=== PATIENT | female | born 1975 | race Caucasian/White ===

== ENCOUNTER 2016-04-01 10:00 | Outpatient (RCR) | payer BC ==
[2014-12-16 15:00] VITALS: BP 128/67
[~2016-04-01 10:00] MED LIST: COPAXONE40 MG/ML SC; MOTRIN 200200 MG/TAB PO; PRENATAL1 TA3 PO; SENSE PAI PO; VITAMIN D2000 I1 PO
== END 2016-04-22 | disposition home or self-care (01) ==
LOC: PT
DX: G35 Multiple sclerosis (principal)

== ENCOUNTER 2016-07-25 13:50 | Outpatient (RCR) | payer MEDICAID ==
[2016-07-25 13:51] VITALS: BP 142/81
[2016-07-25] MEDS ORDERED: GOOD NEIGHBOR P1 T32 PO (14:25)
[2016-07-25] MEDS ORDERED: ESSENTIAL DAIL1 EACH PO (14:25)
[2016-07-25 16:45] VITALS: BP 113/72
[2016-07-26 14:50] VITALS: BP 122/71
[2016-07-26 16:48] VITALS: BP 109/64
[2016-07-27 14:10] VITALS: BP 113/70
[2016-07-27 16:23] VITALS: BP 112/65
[2016-07-28 14:40] VITALS: BP 139/76
[2016-07-28 14:55] VITALS: BP 139/76
[2016-07-28 17:04] VITALS: BP 137/66
[2016-07-29 15:21] VITALS: BP 121/72
[2016-07-29 17:22] VITALS: BP 134/76
== END 2016-07-29 17:00 | disposition home or self-care (01) ==
LOC: AMSURD 13:50 → EDSTATUS 14:29 → AMSURD 07-29 17:00
DX: G35 Multiple sclerosis (principal)
CPT/HCPCS: J2930; J7050

== ENCOUNTER 2017-03-21 13:42 | Outpatient (RCR) | payer MEDICAID ==
[~2017-03-21] VITALS: Ht 160 cm; Wt 90.9 kg
[~2017-03-21 13:42] MED LIST changes: +ESSENTIAL DAIL1 EACH PO; +GOOD NEIGHBOR P1 T32 PO
--- NOTE | 2017-03-21 14:00 | NUR ---
IV left in for length of treatment.
[2017-03-21] MEDS ORDERED: VITAMIN D5000 I1 PO (14:11)
[2017-03-21] MEDS ORDERED: VITAMIN D310000 UNI1 PO (14:13)
[2017-03-21] MEDS ORDERED: AUBAGIO14 MG PO (14:14)
[2017-03-21] MEDS ORDERED: AMPYRA10 MG PO (14:15)
[2017-03-21] MEDS ORDERED: BACLOFEN10 M1 PO (14:16)
[2017-03-21 14:18] VITALS: BP 129/76
[2017-03-21 14:25] VITALS: BP 129/76
[2017-03-21 17:16] VITALS: BP 100/56
[2017-03-22 13:45] VITALS: BP 135/79
[2017-03-22 16:15] VITALS: BP 120/74
[2017-03-23 14:08] VITALS: BP 126/75
[2017-03-23 16:25] VITALS: BP 119/72
[2017-03-24 15:44] VITALS: BP 144/81
--- NOTE | 2017-03-24 16:40 | NUR ---
infusion runs patently, patient curretnly rest quietly without request or complaint
[2017-03-24 17:50] VITALS: BP 136/81
[2017-03-25 14:09] VITALS: BP 146/89
[2017-03-25 16:19] VITALS: BP 137/81
== END 2017-03-25 17:00 | disposition home or self-care (01) ==
LOC: AMSURD 13:42
DX: G35 Multiple sclerosis (principal)
CPT/HCPCS: J2930; J7050

== ENCOUNTER 2018-02-02 11:47 | Outpatient (RCR) | payer MEDICAID ==
[2018-01-29 11:02] VITALS: BP 131/84
[2018-01-29 14:28] VITALS: BP 139/83
[2018-01-30 12:45] VITALS: BP 130/79
[2018-01-30 15:08] VITALS: BP 126/75
[2018-01-31 13:35] VITALS: BP 126/77
[2018-01-31 15:36] VITALS: BP 126/74
[2018-02-01 12:58] VITALS: BP 139/75
[2018-02-01 15:45] VITALS: BP 124/77
[~2018-02-02] VITALS: Ht 160 cm; Wt 90.9 kg
[~2018-02-02 11:47] MED LIST changes: +AMPYRA10 MG PO; +AUBAGIO14 MG PO; +BACLOFEN10 M1 PO; +VITAMIN D310000 UNI1 PO; +VITAMIN D5000 I1 PO
[2018-02-02 12:05] VITALS: BP 129/88
[2018-02-02 14:10] VITALS: BP 132/83
== END 2018-02-02 15:00 | disposition home or self-care (01) ==
LOC: AMSURD 11:47
DX: G35 Multiple sclerosis (principal)
CPT/HCPCS: J2930; J7050

== ENCOUNTER → 2018-03-31 | Outpatient (CLI) | payer MEDICAID | LOC: LAB 10:24 | DX: N39.0 Urinary tract infection, site not specified (principal); B99.9 Unspecified infectious disease ==

== ENCOUNTER → 2018-09-09 | Outpatient (CLI) | payer MEDICAID ==
[2018-09-09 10:23] LABS: BASO # 0.1 (0.02-0.10); EOS # 0.4 (0.04-0.40); EOS % 5.4 % (1.0-5.0); HEMATOCRIT 45.7 % (37.0-47.0); HEMOGLOBIN 14.6 g/dL (12.5-16.0); LYMPH# 1.9 (1.50-4.00); MEAN CELL VOLUME 88 fl (78-100); MEAN CORPUSCULAR HEMOGLOBIN 28 pg (27-31); MEAN CORPUSCULAR HGB CONC 32 g/dL (33-37); MEAN PLATELET VOLUME 8.4 fl (7.4-10.4); MONO # 0.7 (0.20-0.80); NEU # 3.5 (1.40-6.50); PLATELET COUNT 335 K/mm3 (130-400); RED BLOOD COUNT 5.21 M/mm3 (4.10-5.30); RED CELL DISTRIBUTION WIDTH 13.6 % (11.5-14.5); WHITE BLOOD COUNT 6.5 K/mm3 (4.8-10.8)
[2018-09-09 10:58] LABS: ALBUMIN 4.5 g/dL (3.5-5.0); CALCIUM 10.1 mg/dL (8.4-10.2); POTASSIUM 4.2 mmol/L (3.5-5.1); TOTAL BILIRUBIN 0.5 mg/dL (0.2-1.2); TOTAL PROTEIN 7.5 g/dL (6.4-8.3)
[2018-09-12 01:14] LABS: T3 TOTAL 132 ng/dL (87-178)
== END ==
LOC: LAB 09:52
PROVIDERS: Family Medicine
DX: G35 Multiple sclerosis (principal); D63.8 Anemia in other chronic diseases classified elsewhere; E53.9 Vitamin B deficiency, unspecified; E83.42 Hypomagnesemia; R53.83 Other fatigue; R73.9 Hyperglycemia, unspecified

== ENCOUNTER → 2018-09-22 | Outpatient (CLI) | payer MEDICAID ==
[2018-09-22 10:38] LABS: BASO # 0.1 (0.02-0.10); EOS # 0.5 (0.04-0.40); EOS % 6.9 % (1.0-5.0); HEMATOCRIT 45.9 % (37.0-47.0); HEMOGLOBIN 14.5 g/dL (12.5-16.0); MEAN CELL VOLUME 87 fl (78-100); MEAN CORPUSCULAR HEMOGLOBIN 28 pg (27-31); MEAN CORPUSCULAR HGB CONC 32 g/dL (33-37); MEAN PLATELET VOLUME 8.5 fl (7.4-10.4); MONO # 0.7 (0.20-0.80); NEU # 3.7 (1.40-6.50); PLATELET COUNT 345 K/mm3 (130-400); RED BLOOD COUNT 5.25 M/mm3 (4.10-5.30); RED CELL DISTRIBUTION WIDTH 13.8 % (11.5-14.5)
[2018-09-22 11:02] LABS: ALBUMIN 4.1 g/dL (3.5-5.0); CALCIUM 9.8 mg/dL (8.3-10.5); TOTAL BILIRUBIN 0.4 mg/dL (0.2-1.2)
[2018-09-23 00:32] LABS: HEPATITIS B SURFACE ANTIBODY <2.0 (()); HEPATITIS B SURFACE ANTIGEN Negative (Negative)
[2018-09-24 12:17] LABS: QUANTIFERON TB GOLD Negative (Negative)
== END ==
LOC: LAB 10:19
PROVIDERS: Psychiatry & Neurology Neurology
DX: Z51.81 Encounter for therapeutic drug level monitoring (principal); G35 Multiple sclerosis

== ENCOUNTER → 2018-10-15 | Outpatient (CLI) | payer MEDICAID ==
[2018-10-15 13:27] LABS: ALBUMIN 3.8 g/dL (3.5-5.0); EOS # 0.6 (0.04-0.40); EOS % 7.1 % (1.0-5.0); HEMATOCRIT 43.6 % (37.0-47.0); HEMOGLOBIN 13.8 g/dL (12.5-16.0); LYMPH# 2.1 (1.50-4.00); MEAN CELL VOLUME 88 fl (78-100); MEAN CORPUSCULAR HEMOGLOBIN 28 pg (27-31); MEAN CORPUSCULAR HGB CONC 32 g/dL (33-37); MEAN PLATELET VOLUME 8.3 fl (7.4-10.4); NEU # 4.5 (1.40-6.50); PLATELET COUNT 305 K/mm3 (130-400); RED BLOOD COUNT 4.93 M/mm3 (4.10-5.30); RED CELL DISTRIBUTION WIDTH 13.6 % (11.5-14.5); WHITE BLOOD COUNT 8.3 K/mm3 (4.8-10.8)
[2018-10-15 13:29] LABS: CALCIUM 9.1 mg/dL (8.3-10.5)
[2018-10-15 13:30] LABS: TOTAL PROTEIN 6.8 g/dL (6.4-8.3)
[2018-10-15 13:32] LABS: TOTAL BILIRUBIN 0.4 mg/dL (0.2-1.2)
== END ==
LOC: LAB 13:07
PROVIDERS: Psychiatry & Neurology Neurology
DX: G35 Multiple sclerosis (principal)

== ENCOUNTER → 2019-06-18 | Outpatient (CLI) | payer MEDICAID ==
[2019-06-18 12:25] LABS: BASO # 0.1 (0.02-0.10); EOS # 0.5 (0.04-0.40); EOS % 5.6 % (1.0-5.0); HEMATOCRIT 45.3 % (37.0-47.0); HEMOGLOBIN 14.7 g/dL (12.5-16.0); MEAN CELL VOLUME 91 fl (78-100); MEAN CORPUSCULAR HEMOGLOBIN 30 pg (27-31); MEAN CORPUSCULAR HGB CONC 33 g/dL (33-37); MEAN PLATELET VOLUME 8.9 fl (7.4-10.4); NEU # 5.3 (1.40-6.50); PLATELET COUNT 321 K/mm3 (130-400); RED BLOOD COUNT 4.99 M/mm3 (4.10-5.30); WHITE BLOOD COUNT 8.8 K/mm3 (4.8-10.8)
[2019-06-18 23:08] LABS: IGM,SERUM 125 mg/dL (33-293); IMMUNOGLOBULIN A 148 mg/dL (65-421); IMMUNOGLOBULIN G 769 mg/dL (552-1631)
[2019-06-21 11:22] LABS: ALBUMIN 4.1 g/dL (3.5-5.0); POTASSIUM 4.5 mmol/L (3.5-5.1)
[2019-06-21 11:23] LABS: CALCIUM 9.7 mg/dL (8.3-10.5)
[2019-06-21 11:24] LABS: TOTAL PROTEIN 6.3 g/dL (6.4-8.3)
[2019-06-21 11:26] LABS: TOTAL BILIRUBIN 0.4 mg/dL (0.2-1.2)
== END ==
LOC: LAB 11:13
PROVIDERS: Psychiatry & Neurology Neurology
DX: G35 Multiple sclerosis (principal)

== ENCOUNTER → 2020-01-10 | Outpatient (CLI) | payer MEDICAID ==
[2020-01-10 10:30] LABS: BASO # 0.1 (0.02-0.10); EOS # 0.5 (0.04-0.40); EOS % 4.9 % (1.0-5.0); HEMATOCRIT 46.3 % (37.0-47.0); LYMPH# 2.3 (1.50-4.00); MEAN CELL VOLUME 90 fl (78-100); MEAN CORPUSCULAR HEMOGLOBIN 29 pg (27-31); MEAN CORPUSCULAR HGB CONC 32 g/dL (33-37); MEAN PLATELET VOLUME 8.6 fl (7.4-10.4); MONO # 0.8 (0.20-0.80); NEU # 5.9 (1.40-6.50); PLATELET COUNT 383 K/mm3 (130-400); RED BLOOD COUNT 5.15 M/mm3 (4.10-5.30); WHITE BLOOD COUNT 9.6 K/mm3 (4.8-10.8)
[2020-01-10 10:40] LABS: ALBUMIN 4.3 g/dL (3.5-5.0); POTASSIUM 4.2 mmol/L (3.5-5.1)
[2020-01-10 10:42] LABS: CALCIUM 9.3 mg/dL (8.3-10.5)
[2020-01-10 10:43] LABS: TOTAL PROTEIN 7.2 g/dL (6.4-8.3)
[2020-01-10 10:45] LABS: TOTAL BILIRUBIN 0.3 mg/dL (0.2-1.2)
[2020-01-10 22:37] LABS: IGM,SERUM 119 mg/dL (33-293); IMMUNOGLOBULIN A 151 mg/dL (65-421); IMMUNOGLOBULIN G 838 mg/dL (552-1631)
[2020-01-14 11:25] LABS: A/G RATIO (PEP) 1.06 (())
== END ==
LOC: LAB 10:01
PROVIDERS: Psychiatry & Neurology Neurology
DX: G35 Multiple sclerosis (principal); E55.9 Vitamin D deficiency, unspecified

== ENCOUNTER → 2020-04-06 | Outpatient (CLI) | payer MEDICAID | LOC: LAB 16:32 | DX: L02.411 Cutaneous abscess of right axilla (principal) ==

== ENCOUNTER → 2020-06-16 | Outpatient (CLI) | payer MEDICAID ==
[2020-06-16 09:53] LABS: EOS # 0.1 (0.04-0.40); EOS % 1.8 % (1.0-5.0); HEMATOCRIT 46.6 % (37.0-47.0); HEMOGLOBIN 14.9 g/dL (12.5-16.0); LYMPH# 1.6 (1.50-4.00); MEAN CELL VOLUME 91 fl (78-100); MEAN CORPUSCULAR HEMOGLOBIN 29 pg (27-31); MEAN CORPUSCULAR HGB CONC 32 g/dL (33-37); MEAN PLATELET VOLUME 8.4 fl (7.4-10.4); NEU # 5.2 (1.40-6.50); PLATELET COUNT 357 K/mm3 (130-400); RED BLOOD COUNT 5.12 M/mm3 (4.10-5.30); RED CELL DISTRIBUTION WIDTH 12.8 % (11.5-14.5); WHITE BLOOD COUNT 7.9 K/mm3 (4.8-10.8)
[2020-06-16 10:10] LABS: ALBUMIN 4.1 g/dL (3.5-5.0)
[2020-06-16 10:13] LABS: TOTAL PROTEIN 7.1 g/dL (6.4-8.3)
[2020-06-16 10:15] LABS: TOTAL BILIRUBIN 1.2 mg/dL (0.2-1.2)
[2020-06-16 10:18] LABS: DIRECT BILIRUBIN 0.8 mg/dL (0.0-0.5)
== END ==
LOC: LAB 09:28
PROVIDERS: Physician Assistant
DX: R10.11 Right upper quadrant pain (principal)

== ENCOUNTER → 2020-06-19 | Outpatient (CLI) | payer MEDICAID | LOC: RAD 08:30 | DX: K80.20 Calculus of gallbladder without cholecystitis without obstruction (principal); K76.0 Fatty (change of) liver, not elsewhere classified ==

== ENCOUNTER → 2020-07-07 | Outpatient (CLI) | payer MEDICAID ==
[2020-07-07 11:44] LABS: EOS # 0.3 (0.04-0.40); EOS % 3.1 % (1.0-5.0); HEMATOCRIT 44.5 % (37.0-47.0); HEMOGLOBIN 14.3 g/dL (12.5-16.0); LYMPH# 1.8 (1.50-4.00); MEAN CELL VOLUME 92 fl (78-100); MEAN CORPUSCULAR HEMOGLOBIN 29 pg (27-31); MEAN CORPUSCULAR HGB CONC 32 g/dL (33-37); MEAN PLATELET VOLUME 8.4 fl (7.4-10.4); MONO # 0.7 (0.20-0.80); NEU # 5.4 (1.40-6.50); PLATELET COUNT 368 K/mm3 (130-400); RED BLOOD COUNT 4.86 M/mm3 (4.10-5.30); RED CELL DISTRIBUTION WIDTH 12.9 % (11.5-14.5); WHITE BLOOD COUNT 8.2 K/mm3 (4.8-10.8)
[2020-07-07 12:03] LABS: POTASSIUM 4.3 mmol/L (3.5-5.1)
[2020-07-07 12:04] LABS: CALCIUM 9.3 mg/dL (8.3-10.5)
[2020-07-07 12:05] LABS: TOTAL PROTEIN 6.7 g/dL (6.4-8.3)
[2020-07-07 12:07] LABS: TOTAL BILIRUBIN 0.3 mg/dL (0.2-1.2)
[2020-07-12 09:16] LABS: A/G RATIO (PEP) 1.08 (())
== END ==
LOC: LAB 11:13
PROVIDERS: Psychiatry & Neurology Neurology
DX: G35 Multiple sclerosis (principal); G43.009 Migraine without aura, not intractable, without status migrainosus

== ENCOUNTER → 2020-07-13 | Outpatient (CLI) | payer MEDICAID | LOC: LAB 10:22 | DX: N39.0 Urinary tract infection, site not specified (principal) ==

== ENCOUNTER → 2020-07-20 | Outpatient (CLI) | payer MEDICAID ==
[2020-07-20 22:56] LABS: IGM,SERUM 93 mg/dL (33-293); IMMUNOGLOBULIN A 151 mg/dL (65-421); IMMUNOGLOBULIN G 828 mg/dL (552-1631)
== END ==
LOC: LAB 09:26
PROVIDERS: Psychiatry & Neurology Neurology
DX: G35 Multiple sclerosis (principal)

== ENCOUNTER → 2021-01-03 | Outpatient (CLI) | payer MEDICAID ==
[2021-01-03 10:38] LABS: BASO # 0.06 (0.02-0.10); EOS # 0.58 (0.04-0.40); EOS % 5.6 % (1.0-5.0); HEMATOCRIT 47.8 % (37.0-47.0); HEMOGLOBIN 15.4 g/dL (12.5-16.0); LYMPH# 2.44 (1.50-4.00); MEAN CELL VOLUME 93 fl (78-100); MEAN CORPUSCULAR HEMOGLOBIN 30 pg (27-31); MEAN CORPUSCULAR HGB CONC 32 g/dL (33-37); MEAN PLATELET VOLUME 8.4 fl (7.4-10.4); MONO # 0.91 (0.20-0.80); PLATELET COUNT 365 K/mm3 (130-400); RED BLOOD COUNT 5.15 M/mm3 (4.10-5.30); RED CELL DISTRIBUTION WIDTH 12.3 % (11.5-14.5); WHITE BLOOD COUNT 10.3 K/mm3 (4.8-10.8)
[2021-01-03 11:04] LABS: ALBUMIN 4.2 g/dL (3.5-5.0)
[2021-01-03 11:05] LABS: POTASSIUM 4.1 mmol/L (3.5-5.1)
[2021-01-03 11:07] LABS: TOTAL PROTEIN 7.2 g/dL (6.4-8.3)
[2021-01-03 11:09] LABS: TOTAL BILIRUBIN 0.4 mg/dL (0.2-1.2)
[2021-01-05 11:03] LABS: IGG SUBCLASS 1 428.4 mg/dL (()); IGG SUBCLASS 2 235.5 mg/dL (()); IGG SUBCLASS 4 13.8 mg/dL (3.9-86.4); IGG TOTAL 769 mg/dL (610-1616)
[2021-01-08 14:00] LABS: ALPHA 1 GLOBULINS (IEP) 0.2 g/dL (0.1-0.3); GAMMA GLOBULINS (IEP) 0.8 g/dL (0.6-1.6); TOTAL PROTEIN (IEP) 6.6 g/dL (())
== END ==
LOC: LAB 10:05
PROVIDERS: Psychiatry & Neurology Neurology
DX: G35 Multiple sclerosis (principal); E55.9 Vitamin D deficiency, unspecified; G43.009 Migraine without aura, not intractable, without status migrainosus; R25.2 Cramp and spasm

== ENCOUNTER → 2021-04-16 | Outpatient (CLI) | payer MEDICAID | LOC: RAD 17:34 | DX: R05.9 Cough, unspecified (principal); R06.09 Other forms of dyspnea ==

== ENCOUNTER → 2021-04-17 | Outpatient (CLI) | payer MEDICAID ==
[2021-04-17 14:02] LABS: EOS # 0.01 K/mm3 (0.04-0.40); EOS % 0.2 % (1.0-5.0); HEMOGLOBIN 14.3 g/dL (12.5-16.0); LYMPH# 1.14 K/mm3 (1.50-4.00); MEAN CELL VOLUME 91 fl (78-100); MEAN CORPUSCULAR HEMOGLOBIN 30 pg (27-31); MEAN CORPUSCULAR HGB CONC 33 g/dL (33-37); MEAN PLATELET VOLUME 8.4 fl (7.4-10.4); PLATELET COUNT 193 K/mm3 (130-400); RED BLOOD COUNT 4.84 M/mm3 (4.10-5.30); RED CELL DISTRIBUTION WIDTH 12.3 % (11.5-14.5); WHITE BLOOD COUNT 5.3 K/mm3 (4.8-10.8)
[2021-04-17 14:11] LABS: ALBUMIN 3.7 g/dL (3.5-5.0)
[2021-04-17 14:12] LABS: CALCIUM 9.2 mg/dL (8.3-10.5)
[2021-04-17 14:13] LABS: TOTAL PROTEIN 6.6 g/dL (6.4-8.3)
[2021-04-17 14:15] LABS: TOTAL BILIRUBIN 0.4 mg/dL (0.2-1.2)
== END ==
LOC: LAB 13:47
PROVIDERS: Nurse Practitioner Family
DX: U07.1 COVID-19 (principal); J18.9 Pneumonia, unspecified organism

== ENCOUNTER → 2021-05-15 | Outpatient (CLI) | payer MEDICAID | LOC: RAD 09:07 | DX: J84.89 Other specified interstitial pulmonary diseases (principal) ==

== ENCOUNTER → 2021-05-16 | Outpatient (CLI) | payer MEDICAID | LOC: VAS 12:25 → AMSURD 12:25 | DX: R07.9 Chest pain, unspecified (principal) ==

== ENCOUNTER 2021-05-24 13:17 | Emergency (ER) | payer MEDICAID ==
[2021-05-24] MEDS ORDERED: PREDNISONE20 M1 PO (13:29)
[2021-05-24] MEDS ORDERED: BUDESONIDE1 MG/2 ML IH (13:29)
[2021-05-24] MEDS ORDERED: CIPRO 500MG TA500 MG PO (13:29)
[2021-05-24] MEDS ORDERED: ALBUTEROL2.5 MG/3 M IH (13:30)
[2021-05-24 13:57] LABS: BASO # 0.07 K/mm3 (0.02-0.10); EOS # 0.39 K/mm3 (0.04-0.40); EOS % 3.3 % (1.0-5.0); HEMATOCRIT 47.2 % (37.0-47.0); HEMOGLOBIN 15.4 g/dL (12.5-16.0); LYMPH# 3.11 K/mm3 (1.50-4.00); MEAN CELL VOLUME 90 fl (78-100); MEAN CORPUSCULAR HEMOGLOBIN 30 pg (27-31); MEAN CORPUSCULAR HGB CONC 33 g/dL (33-37); MEAN PLATELET VOLUME 8.6 fl (7.4-10.4); MONO # 1.48 K/mm3 (0.20-0.80); NEU # 6.54 K/mm3 (1.40-6.50); PLATELET COUNT 371 K/mm3 (130-400); RED BLOOD COUNT 5.22 M/mm3 (4.10-5.30); RED CELL DISTRIBUTION WIDTH 12.7 % (11.5-14.5); WHITE BLOOD COUNT 11.7 K/mm3 (4.8-10.8)
[2021-05-24 14:09] LABS: ALBUMIN 4.2 g/dL (3.5-5.0)
[2021-05-24 14:10] LABS: POTASSIUM 3.7 mmol/L (3.5-5.1); SODIUM 141 mmol/L (136-145)
[2021-05-24 14:11] LABS: CALCIUM 9.6 mg/dL (8.3-10.5)
[2021-05-24 14:12] LABS: GLUCOSE 160 mg/dL (65-105); TOTAL PROTEIN 7.2 g/dL (6.4-8.3)
[2021-05-24 14:13] LABS: CARBON DIOXIDE 23 mmol/L (22-29)
[2021-05-24 14:14] LABS: TOTAL BILIRUBIN 0.3 mg/dL (0.2-1.2)
[2021-05-24 14:17] LABS: AST-SGOT 16 U/L (5-34)
[2021-05-24 14:18] LABS: ALT/SGPT 25 U/L (0-55)
[2021-05-24 14:28] LABS: TROPONIN-I < 0.030 ng/mL (<0.030)
[2021-05-24] MEDS ORDERED: ELIQUIS5 MG PO (14:50)
[2021-05-24 15:06] VITALS: BP 119/97
== END 2021-05-24 15:02 | disposition home or self-care (01) ==
LOC: ED 13:17
PROVIDERS: Family Medicine
DX: I26.99 Other pulmonary embolism without acute cor pulmonale (principal); G35 Multiple sclerosis
CPT/HCPCS: J2930; Q9967

== ENCOUNTER → 2021-06-05 | Outpatient (CLI) | payer MEDICAID ==
[~2021-06-05] MED LIST changes: +ALBUTEROL2.5 MG/3 M IH; +BUDESONIDE1 MG/2 ML IH; +CIPRO 500MG TA500 MG PO; +ELIQUIS5 MG PO; +PREDNISONE20 M1 PO
[2021-06-05 13:43] LABS: ALBUMIN 4.2 g/dL (3.5-5.0); POTASSIUM 3.9 mmol/L (3.5-5.1)
[2021-06-05 13:44] LABS: CALCIUM 9.6 mg/dL (8.3-10.5)
[2021-06-05 13:45] LABS: TOTAL PROTEIN 7.3 g/dL (6.4-8.3)
[2021-06-05 13:47] LABS: TOTAL BILIRUBIN 0.5 mg/dL (0.2-1.2)
== END ==
LOC: LAB 13:03
PROVIDERS: Family Medicine
DX: E55.9 Vitamin D deficiency, unspecified (principal); E53.9 Vitamin B deficiency, unspecified; E66.3 Overweight; G35 Multiple sclerosis; Z86.711 Personal history of pulmonary embolism; R10.9 Unspecified abdominal pain; Z86.16 Personal history of COVID-19

== ENCOUNTER → 2021-07-17 | Outpatient (CLI) | payer MEDICAID ==
[2021-07-17 13:41] LABS: BASO # 0.07 K/mm3 (0.02-0.10); EOS # 0.67 K/mm3 (0.04-0.40); EOS % 9.1 % (1.0-5.0); HEMATOCRIT 45.6 % (37.0-47.0); HEMOGLOBIN 14.8 g/dL (12.5-16.0); LYMPH# 2.62 K/mm3 (1.50-4.00); MEAN CELL VOLUME 90 fl (78-100); MEAN CORPUSCULAR HEMOGLOBIN 29 pg (27-31); MEAN CORPUSCULAR HGB CONC 33 g/dL (33-37); MEAN PLATELET VOLUME 8.3 fl (7.4-10.4); MONO # 0.86 K/mm3 (0.20-0.80); NEU # 3.14 K/mm3 (1.40-6.50); PLATELET COUNT 320 K/mm3 (130-400); RED BLOOD COUNT 5.05 M/mm3 (4.10-5.30); RED CELL DISTRIBUTION WIDTH 13.1 % (11.5-14.5); WHITE BLOOD COUNT 7.4 K/mm3 (4.8-10.8)
[2021-07-17 13:44] LABS: ALBUMIN 4.2 g/dL (3.5-5.0)
[2021-07-17 13:46] LABS: CALCIUM 9.7 mg/dL (8.3-10.5)
[2021-07-17 13:47] LABS: TOTAL PROTEIN 7.2 g/dL (6.4-8.3)
[2021-07-17 13:49] LABS: TOTAL BILIRUBIN 0.4 mg/dL (0.2-1.2)
[2021-07-17 14:01] LABS: D-DIMER 0.46 mg/L FEU (0.15-0.50)
[2021-07-17 23:10] LABS: HOMOCYSTEINE SERUM OR PLASMA 3.8 umol/L (4.0-14.0)
[2021-07-18 06:54] LABS: FACTOR V LEIDEN MUTATION B Negative (Negative)
[2021-07-20 12:38] LABS: PROTEIN S ACTIVITY 114 % (64-149)
== END ==
LOC: LAB 12:44
PROVIDERS: Family Medicine
DX: E03.9 Hypothyroidism, unspecified (principal); I26.99 Other pulmonary embolism without acute cor pulmonale; E55.9 Vitamin D deficiency, unspecified; E53.9 Vitamin B deficiency, unspecified; G35 Multiple sclerosis; M54.50 Low back pain, unspecified; E66.3 Overweight; K64.9 Unspecified hemorrhoids; R53.1 Weakness; Z86.16 Personal history of COVID-19; Z86.711 Personal history of pulmonary embolism

== ENCOUNTER 2021-07-19 09:34 | Emergency (ER) | payer MEDICAID ==
[2021-07-19 09:42] VITALS: BP 150/82
[2021-07-19 11:59] LABS: URINE APPEARANCE CLEAR; URINE BILIRUBIN NEGATIVE (NEGATIVE); URINE BLOOD 250 ery/uL (NEGATIVE); URINE COLOR YELLOW; URINE GLUCOSE NEGATIVE (NEGATIVE); URINE KETONE NEGATIVE (NEGATIVE); URINE LEUKOCYTE ESTERASE TRACE (NEGATIVE); URINE MUCUS PRESENT (NOT PRESENT); URINE NITRATE NEGATIVE (NEGATIVE); URINE PROTEIN(semi-quant) TRACE (NEGATIVE); URINE UROBILINOGEN NORMAL (NORMAL)
[2021-07-23 12:39] LABS: LUPUS ANTICOAGULANT INR 1.1 (0.7-1.3); LUPUS ANTICOAGULANT PTT 32.9 Seconds (())
[2021-07-23 13:20] LABS: LUPUS ANTICOAGULANT INTERP 37.9 Seconds (())
[2021-07-24 07:45] LABS: LUPUS ANTICOAG DRVVT CONFIRM 1.33 ratio (()); LUPUS ANTICOAGULANT DRVVT 1.58 ratio (()); LUPUS DRVVT RATIO 1.18 ratio (())
== END 2021-07-19 12:25 | disposition home or self-care (01) ==
LOC: ED 09:34
PROVIDERS: Family Medicine
DX: R16.0 Hepatomegaly, not elsewhere classified (principal); Z86.711 Personal history of pulmonary embolism; Z79.01 Long term (current) use of anticoagulants
CPT/HCPCS: J1885; Q9967

== ENCOUNTER 2021-12-28 00:25 | Emergency (ER) | payer MEDICAID ==
[~2021-12-28] VITALS: Ht 160 cm; Wt 100.0 kg
[2021-12-28] MEDS ORDERED: ULTRAM50 M1 PO (00:51)
[2021-12-28] MEDS ORDERED: ACETAMINOPHEN-H1 TA2 PO (00:52)
[2021-12-28 01:27] LABS: URINE APPEARANCE HAZY; URINE BILIRUBIN NEGATIVE (NEGATIVE); URINE BLOOD TRACE (NEGATIVE); URINE COLOR YELLOW; URINE GLUCOSE NEGATIVE (NEGATIVE); URINE KETONE NEGATIVE (NEGATIVE); URINE LEUKOCYTE ESTERASE 1+ (NEGATIVE); URINE NITRATE NEGATIVE (NEGATIVE); URINE PROTEIN(semi-quant) TRACE (NEGATIVE); URINE UROBILINOGEN NORMAL (NORMAL)
[2021-12-28] MEDS ORDERED: MACROBID 100 M100 MG PO (01:57)
[2021-12-28] MEDS ORDERED: PERCOCET 325 MG1 TA2 PO (01:58)
[2021-12-28 02:15] VITALS: BP 132/72
== END 2021-12-28 02:15 | disposition home or self-care (01) ==
LOC: ED 00:25
PROVIDERS: Nurse Practitioner
DX: K64.9 Unspecified hemorrhoids (principal); N39.0 Urinary tract infection, site not specified; Z98.890 Other specified postprocedural states; Z28.310 Unvaccinated for COVID-19

== ENCOUNTER → 2022-02-19 | Outpatient (CLI) | payer MEDICAID ==
[2022-02-19] VITALS (7 sets, daily range): BP systolic 112–130; BP diastolic 66–81
[~2022-02-19] VITALS: Ht 160 cm; Wt 100.0 kg
[~2022-02-19] MED LIST changes: +ACETAMINOPHEN-H1 TA2 PO; +FAMOTIDINE20 MG PO; +LORAZEPAM0.5 M1 PO; +MACROBID 100 M100 MG PO; +PERCOCET 325 MG1 TA2 PO; +ULTRAM50 M1 PO
== END ==
LOC: AMSURD 09:06
DX: G35 Multiple sclerosis (principal); Z79.899 Other long term (current) drug therapy
CPT/HCPCS: J2350; J2930; J7040

== ENCOUNTER 2022-03-04 10:20 | Emergency (ER) | payer MEDICAID ==
[~2022-03-04] VITALS: Ht 162.6 cm; Wt 100.0 kg
[2022-03-04 11:43] LABS: BASO # 0.03 K/mm3 (0.02-0.10); EOS # 0.33 K/mm3 (0.04-0.40); EOS % 2.7 % (1.0-5.0); HEMATOCRIT 43.7 % (37.0-47.0); HEMOGLOBIN 14.4 g/dL (12.5-16.0); LYMPH# 2.33 K/mm3 (1.50-4.00); MEAN CELL VOLUME 92 fl (78-100); MEAN CORPUSCULAR HEMOGLOBIN 30 pg (27-31); MEAN CORPUSCULAR HGB CONC 33 g/dL (33-37); MONO # 0.91 K/mm3 (0.20-0.80); NEU # 8.56 K/mm3 (1.40-6.50); PLATELET COUNT 347 K/mm3 (130-400); RED BLOOD COUNT 4.74 M/mm3 (4.10-5.30); RED CELL DISTRIBUTION WIDTH 12.2 % (11.5-14.5); WHITE BLOOD COUNT 12.2 K/mm3 (4.8-10.8)
[2022-03-04 11:48] LABS: ALBUMIN 4.1 g/dL (3.5-5.0); SODIUM 141 mmol/L (136-145)
[2022-03-04 11:50] LABS: CALCIUM 9.4 mg/dL (8.3-10.5)
[2022-03-04 11:51] LABS: GLUCOSE 138 mg/dL (65-105)
[2022-03-04 11:52] LABS: CARBON DIOXIDE 23 mmol/L (22-29)
[2022-03-04 11:53] LABS: TOTAL BILIRUBIN 0.5 mg/dL (0.2-1.2)
[2022-03-04 11:56] LABS: AST-SGOT 30 U/L (5-34)
[2022-03-04 11:57] LABS: ALT/SGPT 39 U/L (0-55)
[2022-03-04 11:58] LABS: LIPASE 22 U/L (8-78)
[2022-03-04 12:04] LABS: TROPONIN-I < 0.030 ng/mL (<0.030)
[2022-03-04 13:39] VITALS: BP 131/79
[2022-03-04 14:07] LABS: URINE APPEARANCE CLEAR; URINE BILIRUBIN NEGATIVE (NEGATIVE); URINE BLOOD NEGATIVE (NEGATIVE); URINE COLOR YELLOW; URINE GLUCOSE NEGATIVE (NEGATIVE); URINE KETONE NEGATIVE (NEGATIVE); URINE LEUKOCYTE ESTERASE NEGATIVE (NEGATIVE); URINE NITRATE NEGATIVE (NEGATIVE); URINE PROTEIN(semi-quant) TRACE (NEGATIVE); URINE UROBILINOGEN NORMAL (NORMAL)
== END 2022-03-04 13:40 | disposition home or self-care (01) ==
LOC: ED 10:20
PROVIDERS: Physician Assistant
DX: R07.9 Chest pain, unspecified (principal); R10.9 Unspecified abdominal pain; R06.02 Shortness of breath; D72.829 Elevated white blood cell count, unspecified; M54.9 Dorsalgia, unspecified; Z86.711 Personal history of pulmonary embolism; Z86.16 Personal history of COVID-19; Z32.02 Encounter for pregnancy test, result negative; Z79.01 Long term (current) use of anticoagulants
CPT/HCPCS: J3010; Q9967

== ENCOUNTER → 2022-03-29 | Outpatient (CLI) | payer MEDICAID | LOC: RAD 16:50 | DX: R06.00 Dyspnea, unspecified (principal) ==

== ENCOUNTER 2022-12-29 17:08 | Emergency (ER) | payer MEDICAID ==
[~2022-12-29] VITALS: Ht 157.5 cm; Wt 108.4 kg
[~2022-12-29 17:08] MED LIST changes: +ADVIL 200MG TA200 MG PO; +AMOXICILLIN AND1 TA2 PO; +BACLOFEN20 MG PO; +COLACE100 M1 PO; +FLOVENT HFA12 G1 IH; +IMITREX50 M1 PO; +KETOROLAC10 MG PO; +MAGNESIUM OXID400 M1 PO; +MIRENA52 MG IU; +PROBIOTIC-10 11 EACH PO; +TRAMADOL 50 MG TAB PO; +VITAMIN B-1250 MCG PO; +VITAMIN D3125 MC2 PO; +ZYRTEC ALLERGY10 MG PO
[2022-12-29 17:57] LABS: BASO # 0.01 K/mm3 (0.02-0.10); EOS # 0.42 K/mm3 (0.04-0.40); EOS % 4.1 % (1.0-5.0); HEMATOCRIT 45.7 % (37.0-47.0); HEMOGLOBIN 14.9 g/dL (12.5-16.0); MEAN CELL VOLUME 92 fl (78-100); MEAN CORPUSCULAR HEMOGLOBIN 30 pg (27-31); MEAN CORPUSCULAR HGB CONC 33 g/dL (33-37); MEAN PLATELET VOLUME 8.6 fl (7.4-10.4); MONO # 0.98 K/mm3 (0.20-0.80); NEU # 6.25 K/mm3 (1.40-6.50); PLATELET COUNT 346 K/mm3 (130-400); RED BLOOD COUNT 4.95 M/mm3 (4.10-5.30); RED CELL DISTRIBUTION WIDTH 11.7 % (11.5-14.5); WHITE BLOOD COUNT 10.3 K/mm3 (4.8-10.8)
[2022-12-29 18:02] LABS: ALBUMIN 4.2 g/dL (3.5-5.0); POTASSIUM 3.9 mmol/L (3.5-5.1)
[2022-12-29 18:04] LABS: CALCIUM 9.7 mg/dL (8.3-10.5)
[2022-12-29 18:05] LABS: TOTAL PROTEIN 6.8 g/dL (6.4-8.3)
[2022-12-29 18:07] LABS: TOTAL BILIRUBIN 0.4 mg/dL (0.2-1.2)
[2022-12-29 18:26] LABS: URINE APPEARANCE HAZY; URINE BILIRUBIN NEGATIVE (NEGATIVE); URINE BLOOD 50 ery/uL (NEGATIVE); URINE COLOR YELLOW; URINE GLUCOSE NEGATIVE (NEGATIVE); URINE KETONE NEGATIVE (NEGATIVE); URINE LEUKOCYTE ESTERASE NEGATIVE (NEGATIVE); URINE NITRATE NEGATIVE (NEGATIVE); URINE PROTEIN(semi-quant) NEGATIVE (NEGATIVE); URINE UROBILINOGEN NORMAL (NORMAL)
[2022-12-29 19:00] VITALS: BP 122/68
== END 2022-12-29 19:03 | disposition home or self-care (01) ==
LOC: ED 17:08
PROVIDERS: Family Medicine
DX: K62.5 Hemorrhage of anus and rectum (principal); Z79.01 Long term (current) use of anticoagulants; Z87.19 Personal history of other diseases of the digestive system

== ENCOUNTER → 2024-01-29 | Outpatient (CLI) | payer MEDICAID ==
[~2024-01-29] MED LIST changes: +PEPCID 20MG TAB20 MG PO; +PRILOSEC 20MG20 MG PO
[2024-01-29 11:33] LABS: URINE APPEARANCE SLIGHTLY CLOUDY (CLEAR); URINE COLOR YELLOW (YELLOW)
[2024-01-29 11:34] LABS: URINE BILIRUBIN NEGATIVE (NEGATIVE); URINE BLOOD NEGATIVE (NEGATIVE); URINE GLUCOSE NEGATIVE (NEGATIVE); URINE KETONE NEGATIVE (NEGATIVE); URINE LEUKOCYTE ESTERASE 1+ (NEGATIVE); URINE MUCUS PRESENT (NOT PRESENT); URINE NITRATE NEGATIVE (NEGATIVE); URINE PROTEIN(semi-quant) NEGATIVE (NEGATIVE); URINE WBC 31-50 /hpf (0-3)
== END ==
LOC: LAB 10:30
PROVIDERS: Nurse Practitioner
DX: R30.0 Dysuria (principal)

== ENCOUNTER → 2024-04-24 | Outpatient (CLI) | payer MEDICAID ==
[~2024-04-24] MED LIST changes: +OCREVUS300 MG/10 IV
== END ==
LOC: LAB 13:05
DX: N39.0 Urinary tract infection, site not specified (principal)

== ENCOUNTER → 2024-06-17 | Outpatient (CLI) | payer MEDICAID ==
[~2024-06-17] MED LIST changes: +Iohexol 300 - 100 ML VIAL IV ONE; +NS 100 ML IV SCH
== END ==
LOC: RAD 12:52
DX: K76.0 Fatty (change of) liver, not elsewhere classified (principal); D18.09 Hemangioma of other sites; K64.1 Second degree hemorrhoids; K44.9 Diaphragmatic hernia without obstruction or gangrene
CPT/HCPCS: Q9967